=== PATIENT | female | born 1950 | race Caucasian/White ===

== ENCOUNTER → 2020-12-28 | Outpatient (CLI) | payer BC ==
[~2020-12-28] VITALS: Ht 160 cm; Wt 83.0 kg
[~2020-12-28] MED LIST: ATORVASTATIN CA80 MG PO; BRINTELLIX10 MG PO; DEXILANT60 MG PO; METFORMIN HCL500 MG PO; NABUMETONE 500500 M2 PO; NEURONTIN 300M300 M2 PO; NEURONTIN300 MG PO; PROAIR HFA8.5 GM INH; SPIRONOLACTONE25 MG PO; VITAMIN D210 MCG PO
[2020-12-28 13:38] VITALS: BP 122/75
--- NOTE | 2020-12-28 14:08 | NUR ---
Pain Clinic Assessment: 1. History of Osteoarthritis: NECK History of Rheumatoid Arthritis: 2. Height: 5 ft. 3 in. 160.0 cm. Weight: 183.0 lb. oz. 83.008 kg. Patient's BMI: 32.4 3. Vital Signs: BP: 122/75 Pulse: 68 Resp: 14 Temp: 02 Sat: 96 ECG Mon: 4. Pain Intensity: 7 5. Fall Risk: Dizziness: N Needs help standing or walking: N Fallen in the last 3 months: N Fall risk comments: 6. Patient on Blood Thinner: None 7. History of Hypertension: N 8. Opioid Therapy greater than 6 weeks: Opiate Contract Signed: 9. Risk Assessment Tool Provided: 0 LOW RISK 10. Functional Assessment Tool: 41/ 11. Recreational Drug Use: Never Drug Type: Tobacco Use: Former Smoker Tobacco Type: Amount or Packs/day: How Many Years: Alcohol Use: No Frequency: Quant:
--- NOTE | 2021-01-04 14:13 | HPC ---
[facility] [place] [address] [place] [address] PAIN MANAGEMENT CONSULTATION Name: CHINO LEONG Room #: REG MIKE MehulTerryJose#: [id number] Admission: 12/28/20 Attend Phys: Carlos Lopez DO Discharge: Date of : 54 Report #: [id number] THIS REPORT FOR: cc: Lou Verde MD, Alisa B. MD Johnson, James E. DO ~ cc: Morro Sandhu MD DATE OF SERVICE: 12/28/2020 REFERRING PHYSICIAN: Dr. Morro Sandhu. CHIEF COMPLAINT: Neck pain, low back pain. HISTORY OF PRESENT ILLNESS: As you know, the patient is a 70-year-old female who has submitted to lumbar L3-[address] Sandhu with symptom improvement initially. The symptoms unfortunately progressively returned. She describes most of the symptoms on the low back with radiation towards the left, but intermittently on the right. Pain reoccurred spontaneously. She has trialled conservative treatments, but did not notice much in the way of improvement. It was noted on her imaging of 10/30/2020 that she has a grade II spondylolisthesis at L5-S1 with bilateral pars defects, marked bilateral neural foraminal stenosis with mass effect upon the exiting L5 nerve roots, which prompted a referral to Neurosurgery and they have advised a conservative treatment initially trialing epidural injection under fluoroscopic guidance to address this issue. The patient was then subsequently referred to our clinic to discuss those interventional treatment options. The patient reports today her pain is continuous, steady and constant. She describes the pain as a shooting, aching, pulling, sharp, stabbing, numbness and tingling. Places current pain score at 8/10, daily average at 8/10, worst pain is 8+, 10/10. She describes pain is exacerbated with virtually every activity. Pain is improved with nothing today. She has been referred to our service to discuss interventional treatment options to address low back symptoms secondary to bilateral neural foraminal stenosis at L5-S1 level. PAST MEDICAL HISTORY: 1. Prediabetic. 2. Asthma. 3. Ulcerative colitis. 4. Chronic stomach problems secondary to ulcerative colitis. 5. Degenerative joint disease. 6. Osteoarthritis. 7. Lumbar radiculopathy. PAST SURGICAL HISTORY: Bunionectomy in 2009, lumbar decompression at L3-4 in [address] [address] PAIN MANAGEMENT CONSULTATION Name: CHINO LEONG Room #: REG CL Neri#: [id number] Admission: 12/28/20 Attend Phys: Carlos Lopez DO Discharge: Date of : 54 Report #: [id number] SOCIAL HISTORY: The patient denies tobacco, alcohol or IV or illicit drug use. 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 She is not in litigation in regards to pain. She is unaccompanied at today's visit. REVIEW OF SYSTEMS: Positive for decrease in appetite, fatigue and weakness, frequent and recurrent headaches, wearing corrective eyewear, asthma, wheezing, changes in bowel movements, frequent diarrhea, nocturia, incontinence and dribbling to urine, numbness and tingling sensations involving the low back and lower extremities, depression, excessive thirst, urination, heat and cold intolerance. All other review of systems negative per 12-point review of systems other than those listed in history of present illness. ALLERGIES: PENICILLIN. CURRENT MEDICATIONS: Metformin 500 mg once a day, Dexilant 60 mg once a day, albuterol 2 puffs q.4 hours p.r.n., vitamin D2 10 mcg per day, atorvastatin 80 mg per day, gabapentin 300 mg twice a day, Trintellix 10 mg once a day. Pain impact 41/70, moderate to severe interference of daily activities secondary to pain. IMAGING: MRI lumbar spine obtained 09/29/2020 shows a grade 2 spondylolisthesis at L5-S1 with bilateral pars defects, marked bilateral neural foraminal stenosis and mass effect upon L5 nerve roots. Postsurgical changes noted at L3-4 with a focal disk protrusion that is small in nature, but affecting the thecal sac, moderate multifactorial neural foraminal stenosis at this level. Mild degenerative changes of the rest of the lumbar spine. MRI cervical spine obtained, 12/09/2020, shows mild degenerative changes throughout the cervical spine, small broad-based right paracentral disk protrusion. Disk osteophyte complex at C5-C6, otherwise mild arthritic changes, no significant central canal or neural foraminal stenosis. PHYSICAL EXAMINATION: VITAL SIGNS: Blood pressure 122/75, pulse 68, respiratory rate 14 and unlabored. The patient is 96% on room air. Height 5 feet 3 inches tall, weight 183 pounds, BMI calculated 32.4. GENERAL: Well-developed, well-nourished, well-hydrated 70-year-old female appearing stated age, placing current pain today at a 7/10. HEENT: Normocephalic, atraumatic. Pupils equal, round and responsive to light. She is wearing a mask in compliance with COVID-19 regulations and hospital policy. LUNGS: Appear clear. No wheeze, rhonchi or rales. CARDIOVASCULAR: Regular. No appreciable gallop, no rub. ABDOMEN: Soft, mildly obese, normoactive bowel sounds. EXTREMITIES: Show no clubbing, no cyanosis, no edema. [facility] [address] [place] [address] PAIN MANAGEMENT CONSULTATION Name: CHINO LEONG Room #: REG [facility]#: [id number] Admission: 12/28/20 Attend Phys: Carlos Lopez DO Discharge: Date of : 54 Report #: [id number] MUSCULOSKELETAL: Upper extremity strength equal and symmetrical 5/5, lower extremity strength equal and symmetrical 5/5. Deep tendon reflexes are 2+/4 at biceps, brachioradialis, triceps, patella and Achilles. Ankle clonus negative. Babinski is negative. Spurling's test is negative. Cervical provocation testing is met with slight increase in pain consistent with facet arthropathy. There is no spinous process tenderness. Seated straight leg raising negative. Supine straight leg raising positive bilaterally. Fabere's test is negative. Modified Gaenslen's positive for axial low back pain. Ankle clonus negative. Babinski is negative. ASSESSMENT: 1. Lumbar radiculopathy. 2. Neural foraminal stenosis of the lumbar spine. 3. Displacement of lumbar intervertebral disk with radiculopathy. 4. Facet arthropathy of lumbar spine. 5. Cervical facet arthropathy. 6. Chronic neck pain. PLAN: 1. Based on today's physical exam and history the patient has provided, the description the patient uses in regards to pain, source of the patient's low back and bilateral lower extremity symptoms are related to the L5-S1 level based on the physical exam. The patient and I discussed the findings of her MRI, which shows marked neural foraminal stenosis at the L5-S1 level. The findings of that imaging study, we correlated with the patient's findings and physical exam and then discuss treatment options to address this issue. Following was discussed with the patient today. We discussed physical therapy, stretching exercise, core strengthening and a concerted effort at weight loss. We discussed suggestions and medication management to include neuropathic medications such as amitriptyline, nortriptyline, Cymbalta, Lyrica, gabapentin. We discussed lumbar epidural injections under fluoroscopic guidance for which the patient was referred to our clinic. We also discussed spinal cord stimulator therapy and ultimately surgical decompression, which is likely going to be necessary if her symptoms are not resolved with conservative treatment. After reviewing the risks and benefits of all proposed treatment options, the patient chose to move forward with a preauthorization to undergo a lumbar epidural injection under fluoroscopic guidance. 2. The patient was advised that authorization would be necessary for the patient to obtain the ability to undergo the lumbar epidural injection. We will begin the authorization process immediately. Once it has been completed, we will have the patient return to undergo the first in a series of lumbar epidural injections. I am hopeful this authorization, will be completed quickly and we will have the patient back as rapidly as possible. 2. In regards to the patient's neck pain, it appears that she is suffering from mild arthritic changes. I would not recommend interventional treatments. Would recommend a more conservative approach with medication management. The patient [address] [address] PAIN MANAGEMENT CONSULTATION Name: TREVDARLINEKELSEYCHINO Frank Room #: REG CLJakob He#: [id number] Admission: 12/28/20 Attend Phys: Carlos Lopez DO Discharge: Date of : 54 Report #: [id number] is agreeable with that plan. 3. The patient will increase her gabapentin starting at the 300 mg b.i.d. dose and then continuing up escalating dose every 3 days by 300 mg tablet. I have given her a titration schedule to follow. I have sent a prescription of gabapentin 300 mg tablets, #240, to her local pharmacy to begin that titration and escalate appropriately. I did advise the patient during the titration if she notes improvement in symptoms, stabilize at that dose, no further escalation. No improvement in symptoms, no side effects, continue the titration as directed. 4. The patient was provided prescription of nabumetone 500 mg dose. She will take 1 tab p.o. t.i.d. with meals. I have given the patient #90 tablets with 2 refills. The patient was advised to watch for dyspepsia, worsening of blood pressure, lower extremity edema with use. If she notes any side effects, discontinue immediately and call for further instructions. 5. We will see the patient back in followup visit once we have the authorization for her to undergo the first in the series of lumbar epidural injections. I am hopeful that will occur quickly and we will see her back as rapidly as possible. 6. We wish to thank nurse practitioner, Carol Stanley, and Dr. Morro Sandhu for the opportunity to see the patient in consultation. We will keep you apprised of her response to treatment as we address her lumbar radicular symptoms secondary to the neural foraminal stenosis at the L5-S1 level. Again, we wish to thank you for the opportunity to see the patient in consultation. <ELECTRONICALLY SIGNED> By: Carlos Lopez DO 01/04/21 1413 [id number] [id number] Carlos Lopez DO /nt
== END ==
LOC: PAIN 12:49
PROVIDERS: ATTEND Anesthesiology Pain Medicine
DX: M47.26 Other spondylosis with radiculopathy, lumbar region (principal); M51.17 Intervertebral disc disorders with radiculopathy, lumbosacral region; M48.061 Spinal stenosis, lumbar region without neurogenic claudication; M47.22 Other spondylosis with radiculopathy, cervical region; G89.29 Other chronic pain; R73.03 Prediabetes; J45.909 Unspecified asthma, uncomplicated; K51.80 Other ulcerative colitis without complications; M19.90 Unspecified osteoarthritis, unspecified site

== ENCOUNTER → 2021-03-29 | Outpatient (CLI) | payer BC ==
[~2021-03-29] VITALS: Ht 160 cm; Wt 83.7 kg
[2021-03-29 08:13] VITALS: BP 134/68
--- NOTE | 2021-03-29 08:33 | NUR ---
Pain Clinic Assessment: 1. History of Osteoarthritis: NECK History of Rheumatoid Arthritis: 2. Height: 5 ft. 3 in. 160.0 cm. Weight: 184.6 lb. oz. 83.734 kg. Patient's BMI: 32.7 3. Vital Signs: BP: 134/68 Pulse: 72 Resp: 16 Temp: 02 Sat: 99 ECG Mon: 4. Pain Intensity: 8-9 5. Fall Risk: Dizziness: N Needs help standing or walking: N Fallen in the last 3 months: N Fall risk comments: 6. Patient on Blood Thinner: None 7. History of Hypertension: N 8. Opioid Therapy greater than 6 weeks: Opiate Contract Signed: 9. Risk Assessment Tool Provided: 0 LOW RISK 10. Functional Assessment Tool: 41/ 11. Recreational Drug Use: Never Drug Type: Tobacco Use: Former Smoker Tobacco Type: Amount or Packs/day: How Many Years: Alcohol Use: No Frequency: Quant:
--- NOTE | 2021-03-29 14:30 | HPC ---
[facility] [place] [address] [place] [address] PAIN MANAGEMENT CONSULTATION Name: CHINO LEONG Room #: REG MIKE MehulTerry.#: [id number] Admission: 03/29/21 Attend Phys: Carlos Lopez DO Discharge: Date of : 54 Report #: [id number] THIS REPORT FOR: cc: Lou Verde MD, Alisa B. MD Johnson, James E. DO ~ cc: Morro Sandhu MD DATE OF SERVICE: 03/29/2021 REFERRING PHYSICIAN: Dr. Sandhu. CHIEF COMPLAINT: Low back pain, bilateral lower extremity pain, left greater than right. HISTORY OF PRESENT ILLNESS: As you know, the patient is a very pleasant 70-year-old female who was seen in consultation per the request of Dr. Sandhu and his group on 12/28/2020. The patient was diagnosed with lumbar radiculopathy secondary to neural foraminal stenosis of the lumbar spine. She has a spondylolisthesis grade 2 at L5-S1, the source of the symptoms. It was determined that the patient should trial conservative treatment before looking toward surgical options. She was seen in consultation where she was also complaining of chronic neck pain due to mild facet arthropathy. She chose to begin with medication management. We started the patient on therapy and she has had good resolution of her neck pain. She is denying any side effects with the therapy. We did start the patient on gabapentin to help with her neuropathic symptoms. Apparently, at 2 doses of gabapentin total 600 mg p.o. at bedtime, she began experiencing increasing reflux that became so significant she could not escalate the dose further. She returns today in followup visit to discuss options for treatment. She has had no changes in medication management since our last visit. She is placing pain today . ALLERGIES: PENICILLIN. CURRENT MEDICATIONS: Metformin, Dexilant, albuterol, vitamin D2, atorvastatin, gabapentin, Trintellix, and nabumetone. SOCIAL HISTORY: The patient denies tobacco, alcohol or IV or illicit drug use. 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 IMAGING: No new imaging available. PHYSICAL EXAMINATION: VITAL SIGNS: Blood pressure 134/68, pulse 72, respiratory rate 16 and unlabored. The patient 99% on room air. Height 5 feet 3 inches tall, weight 184.6 pounds, BMI calculated 32.7. [place] [address] PAIN MANAGEMENT CONSULTATION Name: CHINO LEONG Room #: REG [facility]#: [id number] Admission: 03/29/21 Attend Phys: Carlos Lopez DO Discharge: Date of : 54 Report #: [id number] GENERAL: Well-developed, well-nourished, well-hydrated 70-year-old female appearing stated age, pain is rated today 8-9/10. HEENT: Normocephalic, atraumatic. Pupils equal, round and responsive. She is wearing a mask in compliance with COVID-19 regulations. EXTREMITIES: Show no clubbing, no cyanosis and no edema. MUSCULOSKELETAL: Lower extremity strength appears symmetrical 5/5 again today. Seated straight leg raising is negative. Supine straight leg raising is positive, left greater than right. KEN test negative. Modified Gaenslen's positive for axial low back pain. Ankle clonus negative. Babinski is negative. ASSESSMENT: 1. Lumbar radiculopathy. 2. Neural foraminal stenosis of lumbar spine. 3. Displacement of lumbar intervertebral disk with radiculopathy. 4. Facet arthropathy of lumbar spine. 5. Spondylolisthesis of L5 on S1. 6. Gastroesophageal reflux disease. 7. Cervical facet arthropathy. 8. Chronic neck pain. PLAN: 1. The patient returns today in followup visit indicating that she was able to escalate the dose of gabapentin to 600 mg prior to any development of some reflux. She has a lifelong history of reflux issues, but has not followed up with gastroenterology in years. She is taking Dexilant along with daily Mylanta and this does not appear to be assisting. She also has a diagnosis of adult onset asthma, which is typically related to poorly controlled acid reflux. We recommend strongly the patient follow up with Gastroenterology in regards to this issue. She has seen Dr. Soni in the past. We recommend to return to Dr. Soni's office to discuss possible EGD. I am concerned with a lifelong history of reflux that is poorly controlled, development of Lynch's esophagus and possibly worse. The patient needs to follow up with Gastroenterology immediately. 2. In regards to the patient's ongoing low back pain, we discussed the options for treatment again today. These would include physical therapy, stretching exercise, core strengthening. We discussed adjustments in medication management. We discussed epidural injections for which the patient was referred to our clinic. We also discussed spinal cord stimulator therapy and ultimately surgical decompression. The patient wishes to return to discuss about her options for surgical decompression. She has been "dealing with this for virtually her entire life." She wants to have this "fixed." The patient is going to follow up with Neurosurgery in regards to surgical options before determining whether or not she wants to trial more conservative treatment options with our services. 3. We recommend the patient continue gabapentin 600 mg dose. This appears to be providing some improvement in symptoms and she has resolution of her reflux [facility] [address] [place] [address] PAIN MANAGEMENT CONSULTATION Name: CHINO LEONG Frank Room #: REG CL MAnuradha.#: [id number] Admission: 03/29/21 Attend Phys: Carlos oLpez DO Discharge: Date of : 54 Report #: [id number] by reducing the dose from 900 to 600. She will continue the 600 mg dose as directed. 4. No further changes in medication management were offered today. We did offer to have the patient undergo a lumbar epidural injection into her earliest convenience. She wants to delay that until having a chance to discuss her case with Neurosurgery. If they choose to have her undergo treatment, she will be returning to undergo that epidural. <ELECTRONICALLY SIGNED> By: Carlos Lopez DO 03/29/21 1430 0828 [id number] Carlos Lopez DO /nt
== END ==
LOC: PAIN 02-01 07:01
PROVIDERS: ATTEND Anesthesiology Pain Medicine
DX: M47.812 Spondylosis without myelopathy or radiculopathy, cervical region (principal); M47.27 Other spondylosis with radiculopathy, lumbosacral region; M48.07 Spinal stenosis, lumbosacral region; K21.9 Gastro-esophageal reflux disease without esophagitis; M51.16 Intervertebral disc disorders with radiculopathy, lumbar region; M48.061 Spinal stenosis, lumbar region without neurogenic claudication; Z88.0 Allergy status to penicillin; Z79.899 Other long term (current) drug therapy